=== PATIENT | female | born 2000 | race Caucasian/White ===

== ENCOUNTER 2024-02-14 16:14 | Outpatient (CLI) | payer OTHER, SELFPAY | END 2024-02-14 16:15 | disposition home or self-care (01) | PROVIDERS: PCP Family Medicine; Visit Provider Physician Assistant | DX: N92.6 Irregular menstruation, unspecified (principal) | CPT/HCPCS: 84146; 84443 ==

== ENCOUNTER 2024-04-09 15:47 | Outpatient (CLI) | payer OTHER, SELFPAY ==
[2024-04-09 18:23] LABS: Bacterial Vaginosis* Negative (Negative); Candida glab/krus NOT DETECTED (No Detected); Candida species DETECTED (No Detected); Trichomonas vaginalis NOT DETECTED (No Detected)
== END 2024-04-09 15:48 | disposition home or self-care (01) ==
LOC: NFLDREF 15:48
PROVIDERS: PCP Family Medicine; Visit Provider Physician Assistant
DX: N90.89 Other specified noninflammatory disorders of vulva and perineum (principal)
CPT/HCPCS: 81513; 87481; 87661